=== PATIENT | male | born 2000 ===

== ENCOUNTER 2018-12-16 20:45 | Emergency (ER) | payer OTHER ==
[~2018-12-16] VITALS: Ht 167.6 cm; Wt 56.7 kg
[2018-12-16] MEDS ORDERED: CRUTCH2 XX (21:42)
== END 2018-12-16 22:05 | disposition home or self-care (01) ==
LOC: ER 20:45
DX: M25.562 Pain in left knee (principal); F17.210 Nicotine dependence, cigarettes, uncomplicated; W01.0XXA Fall on same level from slipping, tripping and stumbling without subsequent striking against object, initial encounter
CPT/HCPCS: 29505; 73564; 99283-25

== ENCOUNTER 2019-03-04 06:40 | Day surgery (SDC) | payer OTHER ==
[~2019-03-04] VITALS: Ht 165.1 cm; Wt 54.4 kg
[~2019-03-04 06:40] MED LIST: CRUTCH2 XX
--- NOTE | 2019-03-04 07:51 | NUR ---
03/04/19 0751 Darwin Preciado 1ST IV ATTEMPT IN [facility] UNSUCCESSFUL, [email or web address] 2ND IV ATTEMPT IN L[facility] SUCCESSFUL, [email or web address]
--- NOTE | 2019-03-04 13:40 | NUR ---
03/04/19 [address] PATIENT HAS BEEN C/O "PAIN" IN LEFT LEG. PATIENT UNABLE TO RATE PAIN, STATES "IT IS HEAVY AND TOO NUMB" MEDICATED PER ORDERS WITHOUT ANY IMPROVEMENT IN HOW HIS LEG FEELS. MOM IN ROOM. PATIENT HAS A VERY FLAT AFFECT. BARELY RESPONDS TO QUESTIONS FROM RN.
== END 2019-03-04 13:49 | disposition home or self-care (01) ==
LOC: ORSCSDS 06:40
PROVIDERS: Orthopaedic Surgery
PROC: 0SBD4ZZ Excision of Left Knee Joint, Percutaneous Endoscopic Approach (ICD-10-PCS; principal; 2019-03-04 08:00)
PROC: 0MRP47Z Replacement of Left Knee Bursa and Ligament with Autologous Tissue Substitute, Percutaneous Endoscopic Approach (ICD-10-PCS; principal; 2019-03-04 08:00)
DX: S83.512A Sprain of anterior cruciate ligament of left knee, initial encounter (principal); S83.242A Other tear of medial meniscus, current injury, left knee, initial encounter; F17.210 Nicotine dependence, cigarettes, uncomplicated
CPT/HCPCS: C1713; C1762; J0171; J0690; J1100; J1885; J2250; J2370; J2405; J2704; J3010; J7120

== ENCOUNTER 2019-05-05 11:20 | Day surgery (SDC) | payer OTHER ==
[~2019-05-05] VITALS: Ht 165.1 cm; Wt 54.2 kg
--- NOTE | 2019-05-05 13:33 | NUR ---
05/05/19 1333 Wang Hector NO INCISION-NO ANTIBIOTIDCS NEEDED. FEMORAL BLOCK PLACED BY DR MASTERS IN OR
--- NOTE | 2019-05-05 13:50 | NUR ---
ARRIVED FROM OR TO STEP. VSS PATIENT ASLEEP AT THIS TIME. PLACED ON 02 MASK SAT 97 PERCENT.
--- NOTE | 2019-05-05 13:57 | NUR ---
PATIENT AWAKE AND FOLLING COMMANDS AT THIS TIME FACE MASK RMOVED.
--- NOTE | 2019-05-05 14:19 | NUR ---
DOCTOR AT BEDSIDE SHOWING PATIENT THAT HE CAN BEND KNEE TO 140 DEGREES PATIENT TEARFUL AND STATING "I CANT" EVEN THOUGH DR ABLE TO BEND KNEE AND NOT HOLD PREASURE TO KEEP IN PLACE. DOCTOR ENCOURAGED PATIENT TO MOVE LEG DOWN IF HE WANTED WITHOUT ASSISTANCE.
--- NOTE | 2019-05-05 15:17 | NUR ---
PATIENT DRESSED AND ESCORTED OUT AFTER GOING OVER DISC HARGE INSTRUCTIONS
== END 2019-05-05 22:46 | disposition home or self-care (01) ==
LOC: ORSCMMR 11:20 → ORD 12:45 → ORSCMMR 12:45 → ORD 14:00 → ORSCMMR 22:46
PROVIDERS: Orthopaedic Surgery
PROC: 0SNDXZZ Release Left Knee Joint, External Approach (ICD-10-PCS; principal; 2019-05-05 12:45)
DX: M24.662 Ankylosis, left knee (principal); F17.210 Nicotine dependence, cigarettes, uncomplicated
CPT/HCPCS: J0690; J2250; J2405; J2704; J7120

== ENCOUNTER → 2020-12-19 | Outpatient (CLI) | payer OTHER ==
[2020-12-19 17:31] LABS: Alanine Aminotransfer (ALT/SGP 21 U/L (12-78); Albumin, Blood 4.6 g/dL (3.4-5.0); Albumin/Globulin Ratio 1.3 (0.8-1.8); Alk Phos 68 U/L (40-126); Anion Gap 10 mmol/L (6-16); Aspartate Aminotrans (AST/SGOT 17 U/L (12-37); Blood Urea Nitrogen 15 mg/dL (8-24); Bun/Creatinine Ratio 13.2 (12.0-20.0); CO2, Blood 27 mmol/L (21-32); Calcium, Blood 9.3 mg/dL (8.5-10.1); Chloride, Blood 102 mmol/L (98-108); Creatinine, Blood 1.14 mg/dL (0.60-1.20); Globulin, Blood 3.5 g/dL (2.2-4.0); Glomerular Filtration Rate >60 (60-); Glucose, Blood 94 mg/dL (70-99); Potassium, Blood 3.7 mmol/L (3.5-5.5); Sodium, Blood 139 mmol/L (136-145); Thyroid Stimulating Hormone 0.989 uIU/mL (0.360-4.800); Total Protein, Blood 8.1 g/dL (6.4-8.2)
== END | disposition home or self-care (01) ==
LOC: LAB 17:03 → LAB SHORT 17:03
PROVIDERS: Physician Assistant
DX: Z11.59 Encounter for screening for other viral diseases (principal); F32.2 Major depressive disorder, single episode, severe without psychotic features; E55.9 Vitamin D deficiency, unspecified; R73.9 Hyperglycemia, unspecified
CPT/HCPCS: 80053; 82306; 83036; 84443; 86803

== ENCOUNTER 2023-02-08 21:03 | Emergency (ER) | payer OTHER ==
[~2023-02-08] VITALS: Ht 165.1 cm; Wt 56.2 kg
[2023-02-08 21:16] VITALS: BP 123/73
== END 2023-02-08 21:22 | disposition home or self-care (01) ==
LOC: ER 21:03
DX: L08.82 Omphalitis not of newborn (principal); F17.210 Nicotine dependence, cigarettes, uncomplicated
CPT/HCPCS: 99282